=== PATIENT | female | born 1945 | race Caucasian/White ===

== ENCOUNTER → 2022-07-14 | Outpatient (CLI) | payer MEDICARE ==
[~2022-07-14] MED LIST: SODIUM CHLORIDE 0.9% 500 ML 500 ML in EMPTY BAG 1 BAG IV PRN
[2022-07-14] MEDS: MAGNESIUM SULFATE-D5W PMX 1 GM in DEXTROSE/WATER 1 100ML.BAG IVPB SCH ×3 (12:35→13:36)
[2022-07-14 12:45] VITALS: BP 128/79; PULSE 76; RESP 16; TEMP 98
== END ==
LOC: PROCWHC3 12:07
PROVIDERS: ATTEND Internal Medicine Nephrology
DX: E83.42 Hypomagnesemia (principal)
CPT/HCPCS: 96365; 96366; J3475

== ENCOUNTER → 2022-10-29 | Outpatient (CLI) | payer MEDICARE ==
--- NOTE | 2022-11-01 11:19 | CT ---
EXAMINATION TYPE: CT abdomen pelvis wo con DATE OF EXAM: 10/29/2022 COMPARISON: 05/31/2022 HISTORY: Abdomen swelling post op colon. Oral contrast only CT DLP: 253.30 mGycm Examination of the solid and hollow viscera is limited given the lack of contrast. Unenhanced CT of t he abdomen pelvis was performed. GI contrast is administered. Contrast is noted to extend to the righ t hemicolon. FINDINGS: LUNG BASES: No evidence for nodule. No evidence for infiltrate. LIVER/GB: The gallbladder is unremarkable. No space-occupying hepatic lesion. PANCREAS: No pancreatic mass identified. No inflammatory process seen. SPLEEN: No evidence for splenomegaly. No intrasplenic lesions seen. Chronic calcifications redemonstr ated. ADRENALS: No adrenal nodules identified. No evidence for thickening. KIDNEYS: Redemonstration of renal cystic lesions bilaterally. Nonobstructing renal calculi redemonstr ated. Vascular calcifications are seen. There is mild left-sided hydronephrosis noted in the interval without evidence for obstructing calculus. This is likely secondary to inflammatory change within th e left hemipelvis. BOWEL: Again noted are changes of left-sided colostomy. There is inflammatory change and wall thicken ing of the sigmoid colon. There is hypoattenuating area adjacent to the sigmoid colon which may refle ct phlegmon or developing abscess. No evidence for small bowel obstruction. Surgical drainage cathete r seen previously has been removed. No evidence for free air. No bowel obstruction seen. Lymph nodes: No evidence for adenopathy greater than 1 cm. Abdominal aorta: Atheromatous changes seen. No evidence for aneurysm. Genital organs: Uterine calcifications noted. Ovaries poorly visualized. Other: No significant abnormality. IMPRESSION: 1.Again noted are changes of left-sided colostomy. There is inflammatory change and wall thickening o f the sigmoid colon. There is hypoattenuating area adjacent to the sigmoid colon which may reflect ph legmon or developing abscess. Inflammatory changes are poorly characterized given the lack of contras t. 2. Mild interval left-sided hydronephrosis likely related to inflammatory changes seen within the lef t lower quadrant.
== END | disposition home or self-care (01) ==
LOC: RADCTMAIN 14:37
PROVIDERS: ATTEND Surgery Plastic and Reconstructive Surgery
DX: N13.30 Unspecified hydronephrosis (principal); K57.20 Diverticulitis of large intestine with perforation and abscess without bleeding; K63.89 Other specified diseases of intestine; Z93.3 Colostomy status
CPT/HCPCS: 74176

== ENCOUNTER 2022-11-19 10:50 | Inpatient (IN) | payer MEDICARE ==
--- NOTE | 2022-11-19 11:08 | ED ---
General Adult HPI - General Chief complaint: Recheck/Abnormal Lab/Rx Stated complaint: DIVERTICULITIS SENT BY [facility] Time Seen by Provider: 11/19/22 10:54 Source: patient, RN/MD (Dr. Dorado), RN notes reviewed Mode of arrival: ambulatory Limitations: no limitations - History of Present Illness Initial comments: 76-year-old female presents emergency department for diverticular abscess. Patient was sent in by Dr. Dorado after a CT scan showed diverticulitis with abscess. Patient has left sided colostomy. She denies any pain currently. She states that she has had some increased bloating which is why she underwent a computed tomography scan. She reports normal output from her colostomy. Denies fever, chills. - Related Data Home Medications Medication Instructions Recorded Confirmed Aspirin [Adult Low Dose Aspirin EC] 162 mg PO DAILY 07/14/22 11/19/22 Calcium Acetate 667 mg PO DAILY 07/14/22 11/19/22 Ergocalciferol [Vitamin D2 (1250 1,250 mcg PO Q30D 07/14/22 11/19/22 Mcg = 15623 Iu)] Magnesium Oxide [Mag-Ox] 400 mg PO DAILY 07/14/22 11/19/22 carvediloL [Coreg] 3.125 mg PO BID 07/14/22 11/19/22 allopurinoL 100 mg PO DAILY 11/19/22 11/19/22 calcitrioL [Calcitriol] 0.25 mcg PO MO 11/19/22 11/19/22 Allergies Allergy/AdvReac Type Severity Reaction Status Date / Time No Known Allergies Allergy Verified 11/19/22 15:10 Review of Systems ROS Statement: Those systems with pertinent positive or pertinent negative responses have been documented in the HPI. ROS Other: All systems not noted in ROS Statement are negative. Past Medical History Past Medical History: Hypertension History of Any Multi-Drug Resistant Organisms: None Reported Past Surgical History: Section, Orthopedic Surgery Additional Past Surgical History / Comment(s): Colostomy, Bowel resection. Past Anesthesia/Blood Transfusion Reactions: No Reported Reaction Past Psychological History: No Psychological Hx Reported Smoking Status: Current every day smoker General Exam Limitations: no limitations General appearance: alert, in no apparent distress Head exam: Present: atraumatic, normocephalic, normal inspection Eye exam: Present: normal appearance, PERRL, EOMI. Absent: scleral icterus, conjunctival injection, periorbital swelling ENT exam: Present: normal exam, mucous membranes moist Neck exam: Present: normal inspection. Absent: tenderness, meningismus, lymphadenopathy Respiratory exam: Present: normal lung sounds bilaterally. Absent: respiratory distress, wheezes, rales, rhonchi, stridor Cardiovascular Exam: Present: regular rate, normal rhythm, normal heart sounds. Absent: systolic murmur, diastolic murmur, rubs, gallop, clicks GI/Abdominal exam: Present: soft, distended, normal bowel sounds, other (colostomy present). Absent: tenderness, guarding, rebound, rigid Extremities exam: Present: normal inspection, full ROM, normal capillary refill. Absent: tenderness, pedal edema, joint swelling, calf tenderness Back exam: Present: normal inspection Neurological exam: Present: alert, oriented X3 Psychiatric exam: Present: normal affect, normal mood Skin exam: Present: warm, dry, intact, normal color. Absent: rash Course Vital Signs 11/19/22 11/19/22 11/19/22 11:02 14:51 17:59 Temperature 98.8 F 98.0 F 97.6 F Pulse Rate 72 75 73 Respiratory 18 18 16 Rate Blood Pressure 169/88 148/83 144/81 O2 Sat by Pulse 98 87 L 98 Oximetry Medical Decision Making - Medical Decision Making Was pt. sent in by a medical professional or institution ([facility]JEEV Tiwari, TELEVISION AGENT, urgent care, hospital, or [facility]...) When possible be specific @ -No Did you speak to anyone other than the patient for history (EMS, parent, family, police, friend...)? What history was obtained from this source @ -No Did you review nursing and triage notes (agree or disagree)? Why? @ -I reviewed and agree with nursing and triage notes Were old charts reviewed (outside hosp., previous admission, EMS record, old EKG, old radiological studies, urgent care reports/EKG's, [facility] records)? Report findings @ -No old charts were reviewed Differential Diagnosis (chest pain, altered mental status, abdominal pain women, abdominal pain men, vaginal bleeding, weakness, fever, dyspnea, syncope, headache, dizziness, GI bleed, back pain, seizure, CVA, palpatations, mental health, musculoskeletal)? @ -Differential Abdominal Pain Women: Appendicitis, Cholecystitis, diverticulosis, ischemic bowel, pancreatitis, hepatitis, UTI, gastroenteritis, AAA, incarcerated hernia, bowel obstruction, constipation, inflammatory bowel, hepatitis, peptic ulcer disease, splenic infarction, perforated viscus, vulvitis, ovarian torsion, PID, kidney stone, placenta abruption, this is not meant to be an all-inclusive list EKG interpreted by me (3pts min.). @ -none X-rays interpreted by me (1pt min.). @ -None done CT interpreted by me (1pt min.). @ -None done U/S interpreted by me (1pt. min.). @ -None done What testing was considered but not performed or refused? (CT, X-rays, U/S, labs)? Why? @ -None What meds were considered but not given or refused? Why? @ -None Did you discuss the management of the patient with other professionals (professionals i.e. , PA, TELEVISION AGENT, lab, RT, psych nurse, social insurance adviser, singing waiter or waitress, teacher, space operations officer, case management assistant)? Give summary @ -Management discussed with Dr. Dorado who would like inpatient admission of this patient with IV Zosyn and interventional radiology consult Was smoking cessation discussed for >3mins.? @ -No Was critical care preformed (if so, how long)? @ -No Were there social determinants of health that impacted care today? How? (Homelessness, low income, unemployed, alcoholism, drug addiction, transportation, low edu. Level, literacy, decrease access to med. care, senior care, rehab)? @ -No Was there de-escalation of care discussed even if they declined (Discuss DNR or withdrawal of care, Hospice)? DNR status @ -No What co-morbidities impacted this encounter? (DM, HTN, Smoking, COPD, CAD, Cancer, CVA, ARF, Chemo, Hep., AIDS, mental health diagnosis, sleep apnea, morbid obesity)? @ -None Was patient admitted / discharged? Hospital course, mention meds given and route, prescriptions, significant lab abnormalities, going to OR and other pertinent info. @ -Admitted. Patient sent to the emergency department by Dr. Dorado for diverticulitis with abscess. Patient states that she's noted increase in bloating recently and underwent a computed tomography scan which showed diverticulitis with abscess. She denies any specific abdominal pain. Patient has a colostomy and reports normal output. Case was discussed with Dr. Dorado who would like inpatient admission of this patient with IV Zosyn and interventional radiology consult. Case discussed with my attending, Dr. Bailon Interventional radiology reviewed the patient's imaging from 3 weeks ago, discussed with Dr. Dorado that they believe there is nothing to be drained based on that imaging. Requests repeat CT with oral and IV contrast. Undiagnosed new problem with uncertain prognosis? @ -No Drug Therapy requiring intensive monitoring for toxicity (Heparin, Nitro, Insulin, Cardizem)? @ -No Were any procedures done? @ -No Diagnosis/symptom? @ -Diverticulitis with abscess Acute, or Chronic, or Acute on Chronic? @ -Acute Uncomplicated (without systemic symptoms) or Complicated (systemic symptoms)? @ -Uncomplicated Side effects of treatment? @ -No Exacerbation, Progression, or Severe Exacerbation? @ - Poses a threat to life or bodily function? How? (Chest pain, [place], [place], pneumonia, PE, COPD, DKA, ARF, appy, cholecystitis, CVA, Diverticulitis, Homicidal, Suicidal, threat to staff... and all critical care pts) @ -diverticulitis - Lab Data Result diagrams: 11/19/22 13:36 Disposition Clinical Impression: Intra-abdominal abscess, Diverticulitis Disposition: ADMITTED IP TO THIS HOSP Condition: Stable Is patient prescribed a controlled substance at d/c from ED?: No
[2022-11-19] MEDS ORDERED: ACETAMINOPHEN TAB 325 MG TAB PO PRN (12:34)
[2022-11-19] MEDS ORDERED: MORPHINE SULFATE 4 MG/ML SYRINGE IV PRN (12:34)
[2022-11-19] MEDS ORDERED: traMADol 50 MG TAB PO PRN (12:34)
[2022-11-19] MEDS ORDERED: NALOXONE 0.4 MG/ML 1 ML VIAL IV PRN (12:34)
[2022-11-19] MEDS ORDERED: PIPERACILLIN-TAZOBACTAM 3.375 GM in SODIUM CHLORIDE 0.9% 100 ML IVPB STA (12:37)
[2022-11-19 13:50] LABS: Basophils % (A) 0 %; Eosinophils # (A) 0.1 k/uL (0-0.7); Eosinophils % (A) 1 %; HCT 32.2 % (34.0-46.0); HGB 10.8 gm/dL (11.4-16.0); Lymphocytes # (A) 0.9 k/uL (1.0-4.8); Lymphocytes % (A) 16 %; MCH 35.5 pg (25.0-35.0); MCHC 33.5 g/dL (31.0-37.0); MCV 106.1 fL (80.0-100.0); Macrocytosis Moderate; Monocytes # (A) 0.4 k/uL (0-1.0); Monocytes % (A) 8 %; Neutrophils # (A) 4.1 k/uL (1.3-7.7); Neutrophils % (A) 74 %; Platelet Count 528 k/uL (150-450); RBC 3.03 m/uL (3.80-5.40); RDW 14.3 % (11.5-15.5); WBC 5.6 k/uL (3.8-10.6)
[2022-11-19] MEDS ORDERED: IOPAMIDOL CONTRAST (ORAL USE) VIAL PO PRN (16:38)
[2022-11-19 18:46] LABS: ALT 16 U/L (4-34); AST 20 U/L (14-36); African American GFR (CKD) 81 (>60 ml/min/1.73 sqM); Albumin 2.6 g/dL (3.5-5.0); Albumin/Globulin Ratio 0.8; Alkaline Phosphatase 59 U/L (38-126); Anion Gap 16 mmol/L; Blood Urea Nitrogen 15 mg/dL (7-17); Calcium 6.9 mg/dL (8.4-10.2); Carbon Dioxide 14 mmol/L (22-30); Chloride 113 mmol/L (98-107); Globulin 3.1 g/dL; Glucose 81 mg/dL (74-99); Non-African American GFR(CKD) 70 (>60 ml/min/1.73 sqM); Sodium 143 mmol/L (137-145); Total Bilirubin 0.6 mg/dL (0.2-1.3); Total Protein 5.7 g/dL (6.3-8.2)
[2022-11-19 18:48] LABS: Potassium 3.3 mmol/L (3.5-5.1)
--- NOTE | 2022-11-19 19:42 | CT ---
EXAMINATION TYPE: CT abdomen pelvis w con CT DLP: 600.7 mGycm, Automated exposure control for dose reduction was used. DATE OF EXAM: 11/19/2022 7:08 PM COMPARISON: CT abdomen pelvis most recent from 10/29/2022. CLINICAL INDICATION:Female, 76 years old with history of abd distention, diverticulitis; abd distenti on, diverticulitis TECHNIQUE: Axial CT of the abdomen and pelvis. Sagittal and coronal reformats were created on a [employer] workstation. Contrast used:100ml mL of Isovue 300 with IV Contrast, (none if empty) Oral contrast used: with Oral Contrast (none if empty) FINDINGS: LOWER CHEST: Unremarkable ABDOMEN LIVER: Unremarkable GALLBLADDER AND BILE DUCTS: Unremarkable. PANCREAS: Unremarkable. SPLEEN: Unremarkable. ADRENAL GLANDS: Unremarkable. KIDNEYS AND URETERS: No evidence of hydronephrosis or obstructing renal calculus. The ureters are unr emarkable. Calcifications within the renal sinuses to represent vascular calcifications versus obstr ucting calculi. PELVIS BLADDER: Unremarkable REPRODUCTIVE: The left adnexa demonstrates a somewhat tubular structure which is not significantly ch anged from prior. This has thin watts and a well-demarcated fat margins. No ABDOMEN & PELVIS STOMACH AND BOWEL: Redemonstration of inflammation changes around the sigmoid colon no organizing flu id collection visualized. There is a left abdominal colostomy present. No evidence for bowel obstruct ion. PERITONEUM/RETROPERITONEUM: No evidence of pneumoperitoneum or free fluid. VASCULATURE: Moderate atherosclerotic calcifications are present throughout the abdominal aorta and i ts branches. No evidence of aortic aneurysm. Infrarenal abdominal ectasia measuring up to 2.2 cm's. MUSCULOSKELETAL: No acute osseous abnormalities, severe degeneration changes of the hips with bone-on -bone articulation on the right. LYMPH NODES: No gross evidence for lymphadenopathy. SOFT TISSUE/ABDOMINAL WALL: Unremarkable IMPRESSION: 1. No evidence for bowel obstruction. Oral contrast extends to the colon. 2. Similar exam compared to 10/29/2022. There is post surgical changes with left-sided colostomy. Infl ammation changes around the sigmoid colon remain. No organizing fluid collection definitively visuali zed. 3. Left adnexal low-density area felt to be somewhat tubular could represent the left ovary versus d ilated fallopian possibly hydrosalpinx given its thin watts.
[2022-11-19] MEDS ORDERED: POTASSIUM CHLORIDE ER 20 MEQ TAB.ER PO STA (20:23)
--- NOTE | 2022-11-19 20:45 | P.GSCN ---
History of Present Illness Consult date: 11/19/22 History of present illness: CHIEF COMPLAINT: Diverticular abscess HISTORY OF PRESENT ILLNESS: The patient is a 76 year old female with recent perforated diverticulitis and small bowel obstruction, 6 months ago. She had acute renal failure, sepsis, bowel obstruction and is status post diverting colostomy April 2022. She presents with abdominal distention and persistent thrombocytosis. She had recent CT of the abdomen and pelvis report demonstrating abnormality of abscess within the pelvis and pelvic fluid collectioin. She denies fevers and chills. She is tolerating diet. She was sent to the emergency room for intra-abdominal diverticular abscess for drainage. PAST MEDICAL HISTORY: See list and reviewed PAST SURGICAL HISTORY: See list and reviewed MEDICATIONS: See list and reviewed ALLERGIES: See list and reviewed SOCIAL HISTORY: See list and reviewed FAMILY HISTORY: See list and reviewed REVIEW OF ORGAN SYSTEMS: CONSTITUTIONAL: No fevers or chills. Has weight loss. EYES: Denies any trouble with vision. No glasses. HEENT: No difficulties with hearing. No nosebleeds. No difficulty swallowing. RESPIRATORY: Denies pneumonia. Denies any troubles with breathing or dyspnea on exertion. CARDIOVASCULAR: Denies any chest pain, palpitations, or recent heart attacks. Has hypertensive heart disease. GASTROINTESTINAL: Denies fatty food intolerance. Denies change in bowel habits and gas bloat. GENITOURINARY: Denies any blood in urine or increased urinary frequency. Past history of acute renal failure with dialysis. NEUROLOGICAL: Denies any numbness or tingling along the distal extremities. No seizure disorders or headaches. MUSCULOSKELETAL: Has back pain, stiffness or joint arthritis. Has gout. SKIN: No current skin cancer. No rash. PSYCHIATRIC: Denies current depression or suicidal thoughts. ENDOCRINE: Denies current thyroid disorders. Denies any blood sugar glucose intolerance. HEME/LYMPHATIC: Denies any lumps and bumps around the neck. No recent deep venous thrombosis. Has anemia. ALLERGY/IMMUNOLOGY: No immunoglobulin therapy. No immune deficiencies. BREAST: Denies current breast lumps, pain or nipple discharge. PHYSICAL EXAM: VITALS: Reviewed CONSTITUTIONAL: Well developed and in no acute distress. EYES: Conjuctivae without sclera icterus. Extraocular movements grossly intact. HEAD, EARS, NOSE, THROAT: Moist buccal mucosa. Head is atraumatic, normocephalic. Hears conversational speech. No nasal drainage. NECK: Supple. No JV distention. No thyroidomegaly. RESPIRATORY: Non-labored respirations and equal bilateral excursions. No gross wheezes. CARDIOVASCULAR: Palpable 2+ radial pulses. ABDOMEN: Abdominal distention. Ostomy patent and functioning. LYMPH: No neck lymphadenopathy. MUSCULOSKELETAL: No clubbing cyanosis or edema SKIN: Warm and well perfused with good skin turgor. NEUROLOGIC: Cranial nerves II through XII grossly intact. No focal or lateralizing signs. PSYCH: Appropriate affect. Alert and oriented to person, place and time. Displays appropriate insight. CLINCAL LABS: Reviewed. WBC normal. Hgb low, anemia. IMAGING: Independently reviewed. CT of the abdomen and pelvis demonstrates pelvic fluid collectomy. RADIOLOGY: Report reviewed. CT of the abdomen and pelvis with fluid collection of the pelvis of abscess. Has hydronephrosis. RECORDS: previous old records reviewed of hospitalization. ASSESSMENT: 1. Abnormal CT scan pelvis with abscess. 2. Hypertensive heart disease 3. Thrombocytosis 4. Tobacco abuse disorder. PLAN: 1. IV fluid hydration. 2. Admission for IV antibiotics. 3. Consultation to interventional radiology for pelvic abscess. ADVANCE DIRECTIVE: Thank you for this kind consultation. ADDENDUM: I personally spoke with Intervention radiology regarding above case. Per discussion, repeat CT of the abdomen and pelvis with IV and oral contrast advised. Reassessment of IR drainage pending images. Past Medical History Past Medical History: Hypertension History of Any Multi-Drug Resistant Organisms: None Reported Past Surgical History: Section, Orthopedic Surgery Additional Past Surgical History / Comment(s): Colostomy, Bowel resection. Past Anesthesia/Blood Transfusion Reactions: No Reported Reaction Past Psychological History: No Psychological Hx Reported Smoking Status: Current every day smoker Medications and Allergies Home Medications Medication Instructions Recorded Confirmed Type Aspirin [Adult Low Dose Aspirin EC] 162 mg PO DAILY 07/14/22 11/19/22 History Calcium Acetate 667 mg PO DAILY 07/14/22 11/19/22 History Ergocalciferol [Vitamin D2 (1250 1,250 mcg PO Q30D 07/14/22 11/19/22 History Mcg = 03738 Iu)] Magnesium Oxide [Mag-Ox] 400 mg PO DAILY 07/14/22 11/19/22 History carvediloL [Coreg] 3.125 mg PO BID 07/14/22 11/19/22 History allopurinoL 100 mg PO DAILY 11/19/22 11/19/22 History calcitrioL [Calcitriol] 0.25 mcg PO MO 11/19/22 11/19/22 History Allergies Allergy/AdvReac Type Severity Reaction Status Date / Time No Known Allergies Allergy Verified 11/19/22 15:10 Surgical - Exam Vital Signs Temp Pulse Resp BP Pulse Ox 98.8 F 72 18 169/88 98 11/19/22 11:02 11/19/22 11:02 11/19/22 11:02 11/19/22 11:02 11/19/22 11:02 Results - Labs 11/19/22 13:36 11/19/22 17:52 Abnormal Lab Results - Last 24 Hours (Table) 11/19/22 11/19/22 Range/Units 13:36 17:52 RBC 3.03 L (3.80-5.40) m/uL Hgb 10.8 L (11.4-16.0) gm/dL Hct 32.2 L (34.0-46.0) % MCV 106.1 H (80.0-100.0) fL MCH 35.5 H (25.0-35.0) pg Plt Count 528 H (150-450) k/uL Lymphocytes # 0.9 L (1.0-4.8) k/uL Potassium 3.3 L (3.5-5.1) mmol/L Chloride 113 H (98-107) mmol/L Carbon Dioxide 14 L (22-30) mmol/L Calcium 6.9 L (8.4-10.2) mg/dL Total Protein 5.7 L (6.3-8.2) g/dL Albumin 2.6 L (3.5-5.0) g/dL Diabetes panel 11/19/22 Range/Units 17:52 Sodium 143 (137-145) mmol/L Potassium 3.3 L (3.5-5.1) mmol/L Chloride 113 H (98-107) mmol/L Carbon Dioxide 14 L (22-30) mmol/L BUN 15 (7-17) mg/dL Creatinine 0.83 (0.52-1.04) mg/dL Glucose 81 (74-99) mg/dL Calcium 6.9 L (8.4-10.2) mg/dL AST 20 (14-36) U/L ALT 16 (4-34) U/L Alkaline Phosphatase 59 (38-126) U/L Total Protein 5.7 L (6.3-8.2) g/dL Albumin 2.6 L (3.5-5.0) g/dL Calcium panel 11/19/22 Range/Units 17:52 Calcium 6.9 L (8.4-10.2) mg/dL Albumin 2.6 L (3.5-5.0) g/dL Pituitary panel 11/19/22 Range/Units 17:52 Sodium 143 (137-145) mmol/L Potassium 3.3 L (3.5-5.1) mmol/L Chloride 113 H (98-107) mmol/L Carbon Dioxide 14 L (22-30) mmol/L BUN 15 (7-17) mg/dL Creatinine 0.83 (0.52-1.04) mg/dL Glucose 81 (74-99) mg/dL Calcium 6.9 L (8.4-10.2) mg/dL Adrenal panel 11/19/22 Range/Units 17:52 Sodium 143 (137-145) mmol/L Potassium 3.3 L (3.5-5.1) mmol/L Chloride 113 H (98-107) mmol/L Carbon Dioxide 14 L (22-30) mmol/L BUN 15 (7-17) mg/dL Creatinine 0.83 (0.52-1.04) mg/dL Glucose 81 (74-99) mg/dL Calcium 6.9 L (8.4-10.2) mg/dL Total Bilirubin 0.6 (0.2-1.3) mg/dL AST 20 (14-36) U/L ALT 16 (4-34) U/L Alkaline Phosphatase 59 (38-126) U/L Total Protein 5.7 L (6.3-8.2) g/dL Albumin 2.6 L (3.5-5.0) g/dL
[2022-11-19] MEDS: carvediloL 6.25 MG TAB PO SCH (21:40)
[2022-11-20] MEDS: ASPIRIN 81 MG PO SCH (09:54)
[2022-11-20] MEDS: MAGNESIUM OXIDE 400 MG TAB PO SCH (09:54)
[2022-11-20] MEDS: allopurinoL 100 MG TAB PO SCH (09:54)
[2022-11-20] MEDS: carvediloL 6.25 MG TAB PO SCH ×2 (09:54→18:25)
[2022-11-20] MEDS: CALCIUM ACETATE 667 MG TAB PO SCH (09:55)
--- NOTE | 2022-11-20 10:12 | P.CONS ---
History of Present Illness - History of Present Illness This is a pleasant 76 years old female with past medical history of hypertens ion. She was in this facility 05/10-05/31 for small bowel obstruction status post surgery for bowel resection and left lower quadrant colostomy. She's been having abdominal distention 2 months, she follows up with her surgeon Dr. Ludivina Newman CAT scan of the abdomen, last Tuesday she did follow up with Dr. Florence for the CAT scan and results showing an abscess so she was referred to the hospital. CAT scan of the abdomen and pelvis with contrast on 11/19: No evidence of bowel obstruction, with surgical changes, inflammatory changes around the sigmoid colon, no organizing fluid collection visualized.No evidence of hydronephrosis. Left adnexal low density area felt to be somewhat tubular could represent left ovary versus dilated fallopian possibly hydrosalpinx given his thin watts Labs reviewed, hemoglobin 10.8, potassium 3.3, creatinine 0.8. Liver enzymes are unremarkable. Review of Systems Review of systems CONSTITUTIONAL: No fever, no malaise, no fatigue. HEENT: No recent visual problems or hearing problems. Denied any sore throat. CARDIOVASCULAR: No orthopnea, PND, no palpitations, no syncope. PULMONARY: No shortness of breath, no cough, no hemoptysis. GASTROINTESTINAL: No diarrhea, no nausea, no vomiting, no abdominal pain. Normoactive bowel sounds. NEUROLOGICAL: No headaches, no weakness, no numbness. HEMATOLOGICAL: Denies any bleeding or petechiae. GENITOURINARY: Denies any burning micturition, frequency, or urgency. MUSCULOSKELETAL/RHEUMATOLOGICAL: Denies any joint pain, swelling, or any muscle pain. ENDOCRINE: Denies any polyuria or polydipsia. Past Medical History Past Medical History: Hypertension History of Any Multi-Drug Resistant Organisms: None Reported Past Surgical History: Section, Orthopedic Surgery Additional Past Surgical History / Comment(s): Colostomy, Bowel resection. Past Anesthesia/Blood Transfusion Reactions: No Reported Reaction Past Psychological History: No Psychological Hx Reported Smoking Status: Current every day smoker Medications and Allergies Home Medications Medication Instructions Recorded Confirmed Type Aspirin [Adult Low Dose Aspirin EC] 162 mg PO DAILY 07/14/22 11/19/22 History Calcium Acetate 667 mg PO DAILY 07/14/22 11/19/22 History Ergocalciferol [Vitamin D2 (1250 1,250 mcg PO Q30D 07/14/22 11/19/22 History Mcg = 45763 Iu)] Magnesium Oxide [Mag-Ox] 400 mg PO DAILY 07/14/22 11/19/22 History carvediloL [Coreg] 3.125 mg PO BID 07/14/22 11/19/22 History allopurinoL 100 mg PO DAILY 11/19/22 11/19/22 History calcitrioL [Calcitriol] 0.25 mcg PO MO 11/19/22 11/19/22 History Allergies Allergy/AdvReac Type Severity Reaction Status Date / Time No Known Allergies Allergy Verified 11/19/22 15:10 Physical Exam Vitals: Vital Signs Temp Pulse Pulse Resp BP BP Pulse Ox 11/20/22 08:00 98.7 F 67 16 125/76 94 L 11/20/22 01:40 98.8 F 83 18 142/77 97 11/19/22 20:00 18 11/19/22 19:34 97.7 F 72 18 170/97 98 11/19/22 17:59 97.6 F 73 16 144/81 98 11/19/22 14:51 98.0 F 75 18 148/83 87 L 11/19/22 11:02 98.8 F 72 18 169/88 98 Intake and Output 11/19/22 11/20/22 11/20/22 22:59 06:59 14:59 Intake Total 240 240 Balance 240 240 Intake: Oral 240 240 Other: Voiding Method Toilet # Voids 1 3 Weight 50.802 kg GENERAL: The patient is alert and oriented x3, not in any acute distress. Well developed, well nourished. HEENT: Pupils are round and equally reacting to light. EOMI. No scleral icterus. No conjunctival pallor. Normocephalic, atraumatic. No pharyngeal erythema. No thyromegaly. CARDIOVASCULAR: S1 and S2 present. No murmurs, rubs, or gallops. PULMONARY: Chest is clear to auscultation, no wheezing , no crackles. --ABDOMEN: Soft, nontender, distended, normoactive bowel sounds. No palpable organomegaly. LLQ colostomy with liquid dark brown stool, no blood MUSCULOSKELETAL: No joint swelling or deformity. EXTREMITIES: No cyanosis, clubbing, or pedal edema. NEUROLOGICAL: Gross neurological examination did not reveal any focal deficits. SKIN: No rashes. no petechiae. Results CBC & Chem 7: 11/19/22 13:36 11/19/22 17:52 Labs: Abnormal Lab Results - Last 24 Hours (Table) 11/19/22 11/19/22 Range/Units 13:36 17:52 RBC 3.03 L (3.80-5.40) m/uL Hgb 10.8 L (11.4-16.0) gm/dL Hct 32.2 L (34.0-46.0) % MCV 106.1 H (80.0-100.0) fL MCH 35.5 H (25.0-35.0) pg Plt Count 528 H (150-450) k/uL Lymphocytes # 0.9 L (1.0-4.8) k/uL Potassium 3.3 L (3.5-5.1) mmol/L Chloride 113 H (98-107) mmol/L Carbon Dioxide 14 L (22-30) mmol/L Calcium 6.9 L (8.4-10.2) mg/dL Total Protein 5.7 L (6.3-8.2) g/dL Albumin 2.6 L (3.5-5.0) g/dL Assessment and Plan Assessment: Abdominal distention, CAT scan showing some inflammatory changes around the sigmoid colon Recent history of perforated viscous status post bowel resection and left lower quadrant colostomy (last April,) Possible left ovarian cyst versus hydrosalpinx Plan: Continue monitoring now Vitas looks stable, blood pressure slightly elevated. Continue with aspirin At [facility] Monitor for GI symptoms and abdominal pain and tenderness We'll defer the management of abnormal CT and possible abscess to surgery team, IR team or the consulted for possible drainage Labs and medication were reviewed.. Continue same treatment. Continue with symptomatic treatment. Resume home medication. Monitor labs and vitals. DVT and GI prophylaxis. Further recommendations as per clinical course of the patient DVT prophylaxis: Subcutaneous heparin GI Prophylaxis: Suni Thank you for consulting us for follow-up
--- NOTE | 2022-11-20 10:53 | P.PN ---
Subjective Progress Note Date: 11/20/22 Principal diagnosis: Diverticulitis Patient did well overnight. Complaining of mild abdominal bloating. No significant pain. No nausea or vomiting. Tolerating diet. Objective - Vital Signs Vital signs: Vital Signs Temp 98.7 F 11/20/22 08:00 Pulse 67 11/20/22 08:00 Resp 16 11/20/22 08:00 BP 125/76 11/20/22 08:00 Pulse Ox 94 L 11/20/22 08:00 FiO2 Intake & Output 11/19/22 11/20/22 11/20/22 18:59 06:59 18:59 Intake Total 480 Balance 480 Weight 50.802 kg 50.802 kg Intake: Oral 480 Other: Voiding Method Toilet Toilet # Voids 3 - Exam Abdomen: Soft, mild distention, mild tympany, nontender, ostomy function - Labs CBC & Chem 7: 11/19/22 13:36 11/19/22 17:52 Labs: Abnormal Lab Results - Last 24 Hours (Table) 11/19/22 11/19/22 Range/Units 13:36 17:52 RBC 3.03 L (3.80-5.40) m/uL Hgb 10.8 L (11.4-16.0) gm/dL Hct 32.2 L (34.0-46.0) % MCV 106.1 H (80.0-100.0) fL MCH 35.5 H (25.0-35.0) pg Plt Count 528 H (150-450) k/uL Lymphocytes # 0.9 L (1.0-4.8) k/uL Potassium 3.3 L (3.5-5.1) mmol/L Chloride 113 H (98-107) mmol/L Carbon Dioxide 14 L (22-30) mmol/L Calcium 6.9 L (8.4-10.2) mg/dL Total Protein 5.7 L (6.3-8.2) g/dL Albumin 2.6 L (3.5-5.0) g/dL Assessment and Plan (1) Diverticulitis Narrative/Plan: 76 year old female with history of diverticulitis and possible recurrent diverticulitis of defunctionalized distal sigmoid colon. Plan for repeat CAT scan abdomen and pelvis with interventional radiology on Tuesday. Continue antibiotics. Continue diet. Current Visit: Yes Status: Acute Code(s): K57.92 - DVTRCLI OF INTEST, PART UNSP, W/O PERF OR ABSCESS W/O BLEED SNOMED Code(s): 808593453
[2022-11-20] MEDS: amLODIPine 2.5 MG TAB PO SCH (11:15)
[2022-11-20] MEDS: HEPARIN SODIUM,PORCINE 5,000 UNIT/ML 1 ML VIAL SQ SCH (20:48)
[2022-11-21] MEDS: HEPARIN SODIUM,PORCINE 5,000 UNIT/ML 1 ML VIAL SQ SCH ×2 (08:19→20:31)
[2022-11-21] MEDS: amLODIPine 2.5 MG TAB PO SCH (08:19)
[2022-11-21] MEDS: allopurinoL 100 MG TAB PO SCH (08:19)
[2022-11-21] MEDS: CALCIUM ACETATE 667 MG TAB PO SCH (08:19)
[2022-11-21] MEDS: carvediloL 6.25 MG TAB PO SCH ×2 (08:19→18:05)
[2022-11-21] MEDS: MAGNESIUM OXIDE 400 MG TAB PO SCH (08:20)
[2022-11-21] MEDS: ASPIRIN 81 MG PO SCH (08:20)
[2022-11-21] MEDS: FAMOTIDINE 20 MG/2 ML VIAL IV SCH (10:19)
--- NOTE | 2022-11-21 10:39 | P.PN ---
Subjective Progress Note Date: 11/21/22 Principal diagnosis: Diverticulitis Patient has no new complaints. Denies abdominal pain. She has moved her bowels. Tolerating diet. Objective - Vital Signs Vital signs: Vital Signs Temp 97.6 F 11/21/22 07:39 Pulse 66 11/21/22 07:39 Resp 16 11/21/22 07:39 BP 135/76 11/21/22 07:39 Pulse Ox 93 L 11/21/22 07:39 FiO2 Intake & Output 11/20/22 11/21/22 11/21/22 18:59 06:59 18:59 Intake Total 425 Balance 425 Intake: Oral 425 Other: Voiding Method Toilet Toilet # Voids 2 2 - Exam Abdomen: Soft, mild distention, mild tympany, nontender, ostomy function - Labs CBC & Chem 7: 11/19/22 13:36 11/19/22 17:52 Assessment and Plan (1) Diverticulitis Narrative/Plan: Patient doing well today. Continue antibiotics. Await interventional radiology about tomorrow. Current Visit: Yes Status: Acute Code(s): K57.92 - DVTRCLI OF INTEST, PART UNSP, W/O PERF OR ABSCESS W/O BLEED SNOMED Code(s): 609975025
--- NOTE | 2022-11-21 14:19 | P.PN ---
Subjective This is a pleasant 76 years old female with past medical history of hypertension. She was in this facility 05/10-05/31 for small bowel obstruction sta tus post surgery for bowel resection and left lower quadrant colostomy. She's been having abdominal distention 2 months, she follows up with her surgeon Dr. Ludivina Newman CAT scan of the abdomen, last Tuesday she did follow up with Dr. Florence for the CAT scan and results showing an abscess so she was referred to the hospital. CAT scan of the abdomen and pelvis with contrast on 11/19: No evidence of bowel obstruction, with surgical changes, inflammatory changes around the sigmoid colon, no organizing fluid collection visualized.No evidence of hydronephrosis. Left adnexal low density area felt to be somewhat tubular could represent left ovary versus dilated fallopian possibly hydrosalpinx given his thin watts Labs reviewed, hemoglobin 10.8, potassium 3.3, creatinine 0.8. Liver enzymes are unremarkable. 11/21/2022 patient is with no chest pain no abdominal pain no nausea vomiting no diarrhea. No other new complaints. No fever, hemodynamically stable. Continue with antiacids Continue monitoring while off antibiotics Objective - Vital Signs Vital signs: Vital Signs Temp 97.6 F 11/21/22 07:39 Pulse 66 11/21/22 07:39 Resp 16 11/21/22 07:39 BP 135/76 11/21/22 07:39 Pulse Ox 93 L 11/21/22 07:39 FiO2 Intake & Output 11/20/22 11/21/22 11/21/22 18:59 06:59 18:59 Intake Total 425 Balance 425 Intake: Oral 425 Other: Voiding Method Toilet Toilet # Voids 2 2 - Exam GENERAL: The patient is alert and oriented x3, not in any acute distress. Well developed, well nourished. HEENT: Pupils are round and equally reacting to light. EOMI. No scleral icterus. No conjunctival pallor. Normocephalic, atraumatic. No pharyngeal erythema. No thyromegaly. CARDIOVASCULAR: S1 and S2 present. No murmurs, rubs, or gallops. PULMONARY: Chest is clear to auscultation, no wheezing , no crackles. ABDOMEN: Soft, nontender, nondistended, normoactive bowel sounds. No palpable organomegaly. MUSCULOSKELETAL: No joint swelling or deformity. EXTREMITIES: No cyanosis, clubbing, or pedal edema. NEUROLOGICAL: Gross neurological examination did not reveal any focal deficits. SKIN: No rashes. no petechiae. - Labs CBC & Chem 7: 11/19/22 13:36 11/19/22 17:52 Assessment and Plan Assessment: Abdominal distention, CAT scan showing some inflammatory changes around the sigmoid colon Recent history of perforated viscous status post bowel resection and left lower quadrant colostomy (last April,) Possible left ovarian cyst versus hydrosalpinx Plan: Continue monitoring now Vitas looks stable, blood pressure slightly elevated. Continue with aspirin Continue with Norvasc Monitor for GI symptoms and abdominal pain and tenderness We'll defer the management of abnormal CT and possible abscess to surgery team, IR team or the consulted for possible drainage. Also we'll defer the management of antibiotic to surgery primary team Labs and medication were reviewed.. Continue same treatment. Continue with symptomatic treatment. Resume home medication. Monitor labs and vitals. DVT and GI prophylaxis. Further recommendations as per clinical course of the patient DVT prophylaxis: Subcutaneous heparin GI Prophylaxis: Suni Thank you for consulting us for follow-up
[2022-11-21] MEDS ORDERED: Potassium Replacement Protocol 1 EACH MISC MISCELLANE PRN (15:39)
[2022-11-22] MEDS: ASPIRIN 81 MG PO SCH (08:51)
[2022-11-22] MEDS: CALCIUM ACETATE 667 MG TAB PO SCH (08:51)
[2022-11-22] MEDS: MAGNESIUM OXIDE 400 MG TAB PO SCH (08:51)
[2022-11-22] MEDS: carvediloL 6.25 MG TAB PO SCH (08:51)
[2022-11-22] MEDS: FAMOTIDINE 20 MG/2 ML VIAL IV SCH (08:51)
[2022-11-22] MEDS: allopurinoL 100 MG TAB PO SCH (08:51)
[2022-11-22] MEDS: amLODIPine 2.5 MG TAB PO SCH (08:54)
[2022-11-22] MEDS: HEPARIN SODIUM,PORCINE 5,000 UNIT/ML 1 ML VIAL SQ SCH (08:54)
[2022-11-22 11:03] LABS: HCT 26.1 % (37.2-46.3); HGB 8.4 d/dL (12.0-15.0); MCHC 32.2 d/dL (32.0-37.0); MCV 108.8 FL (80.0-97.0); Mean Platelet Volume 9.1 FL (9.5-12.2); NRBC Per 100 WBC 0 X 10*3/uL (0.00-0.01); Platelet Count 598 X 10*3/uL (140-440); RDW 14.4 % (11.5-14.5); WBC 5.23 X 10*3/uL (4.50-10.00)
[2022-11-22 11:13] LABS: BUN/Creat Ratio 12.75 Ratio (12.00-20.00); Blood Urea Nitrogen 15.3 mg/dL (9.0-27.0); Calcium 8.5 mg/dL (8.7-10.3); Carbon Dioxide 18.7 mmol/L (21.6-31.8); Chloride 109 mmol/L (96-109); Glucose 94 mg/dL (70-110); Potassium 4.6 mmol/L (3.5-5.5); Sodium 137 mmol/L (135-145)
[2022-11-22 11:44] LABS: Basophils # (A) 0.02 X 10*3/uL (0.00-0.10); Basophils % (A) 0.4 %; Eosinophils # (A) 0.22 X 10*3/uL (0.04-0.35); Eosinophils % (A) 4.2 %; Lymphocytes # (A) 0.76 X 10*3/uL (0.90-5.00); Lymphocytes % (A) 14.5 %; Macrocytosis (M) 2+; Monocytes # (A) 0.37 X 10*3/uL (0.20-1.00); Monocytes % (A) 7.1 %; Neutrophils # (A) 3.83 X 10*3/uL (1.80-7.70); Neutrophils % (A) 73.2 %
[2022-11-22] MEDS ORDERED: PIPERACILLIN-TAZOBACTAM 3.375 GM in SODIUM CHLORIDE 0.9% 100 ML IVPB SCH (12:00)
--- NOTE | 2022-11-22 12:22 | P.CON ---
Consult Note - . Consult date: 11/22/22 Assessment/Plan:: CT report states no definite fluid collection. there is no safe access for percutaneous drainage.
[2022-11-22 12:39] VITALS: BP 148/75; PULSE 63; RESP 16; TEMP 98.3
--- NOTE | 2022-11-22 13:28 | P.PN ---
Subjective Progress Note Date: 11/22/22 This is a pleasant 76 years old female with past medical history of hypertension. She was in this facility 05/10-05/31 for small bowel obstruction status post surgery for bowel resection and left lower quadrant colostomy. She's been having abdominal distention 2 months, she follows up with her surgeon Dr. Ludivina Newman CAT scan of the abdomen, last Tuesday she did follow up with Dr. Florence for the CAT scan and results showing an abscess so she was referred to the hospital. CAT scan of the abdomen and pelvis with contrast on 11/19: No evidence of bowel obstruction, with surgical changes, inflammatory changes around the sigmoid colon, no organizing fluid collection visualized.No evidence of hydronephrosis. Left adnexal low density area felt to be somewhat tubular could represent left ovary versus dilated fallopian possibly hydrosalpinx given his thin watts Labs reviewed, hemoglobin 10.8, potassium 3.3, creatinine 0.8. Liver enzymes are unremarkable. 11/21/2022 patient is with no chest pain no abdominal pain no nausea vomiting no diarrhea. No other new complaints. No fever, hemodynamically stable. Continue with antiacids Continue monitoring while off antibiotics 11/22. Patient seen and examined. Denies abdominal pain. Denies any nausea or vomiting REVIEW OF SYSTEMS: CONSTITUTIONAL: No fever, no malaise,. CARDIOVASCULAR: No chest pain, no palpitations, no syncope. PULMONARY: No shortness of breath, no cough, GASTROINTESTINAL: No diarrhea, no nausea, no vomiting, no abdominal pain. NEUROLOGICAL: No headaches, no weakness, PHYSICAL EXAMINATION: GENERAL: The patient is alert and oriented x3, not in any acute distress. Well developed, well nourished. HEENT: Pupils are round and equally reacting to light. EOMI. No scleral icterus. No conjunctival pallor. Normocephalic, atraumatic. No pharyngeal erythema. No thyromegaly. CARDIOVASCULAR: S1 and S2 present. No murmurs, rubs, or gallops. PULMONARY: Chest is clear to auscultation, no wheezing or crackles. ABDOMEN: Soft, nontender, nondistended, normoactive bowel sounds. No palpable organomegaly. Ostomy seen MUSCULOSKELETAL: No joint swelling or deformity. EXTREMITIES: No cyanosis, clubbing, or pedal edema. NEUROLOGICAL: Gross neurological examination did not reveal any focal deficits. SKIN: No rashes. Assessment and plan Abdominal distention, CAT scan showing some inflammatory changes around the sigmoid colon Recent history of perforated viscous status post bowel resection and left lower quadrant colostomy (last April,) Possible left ovarian cyst versus hydrosalpinx Monitor vital signs Monitor CBC Monitor CMP Continue IV fluids Continue pain management IR consulted for possible drainage, they evaluated the imaging, don't think that is enough fluid to have it drained Antibiotics per ID. Gen. surgery following Labs and medication were reviewed.. Continue same treatment. Continue with symptomatic treatment. Resume home medication. Monitor labs and vitals. DVT and GI prophylaxis. Further recommendations as per clinical course of the patient Dictation was produced using [employer] dictation software. please excuse any g rammatical, word or spelling errors. Objective - Vital Signs Vital signs: Vital Signs Temp 98.6 F 11/22/22 07:27 Pulse 61 11/22/22 07:27 Resp 18 11/22/22 07:27 BP 142/90 11/22/22 07:27 Pulse Ox 98 11/22/22 07:27 FiO2 Intake & Output 11/21/22 11/22/22 11/22/22 18:59 06:59 18:59 Intake Total 620 Balance 620 Intake: Oral 620 Other: Voiding Method Toilet Toilet # Voids 2 3 - Labs CBC & Chem 7: 11/22/22 06:39 11/22/22 06:39 Labs: Microbiology - Last 24 Hours (Table) 11/19/22 13:45 Blood Culture Gram Stain - Preliminary Blood 11/19/22 13:30 Blood Culture - Preliminary Blood
--- NOTE | 2022-11-22 14:48 | P.DS ---
Providers Date of admission: 11/19/22 11:11 Expected date of discharge: 11/22/22 Attending physician: Sara Dorado Consults: 11/19/22 20:21 Consult Physician Routine Consulting Provider: Toyin Cobos Consult Reason/Comments: Medical management Do you want consulting provider notified?: Yes 11/22/22 09:12 Consult Physician Routine Consulting Provider: Willy Rogers Consult Reason/Comments: Antibiotic management, pelvic abscess Do you want consulting provider notified?: Yes Primary care physician: [facility] Course: Discharge diagnosis 1. Abnormal CT scan pelvis with abscess. 2. Hypertensive heart disease 3. Thrombocytosis 4. Tobacco abuse disorder. Hospital course he patient is a 76 year old female with recent perforated diverticulitis and sm all bowel obstruction, 6 months ago. She had acute renal failure, sepsis, bowel obstruction and is status post diverting colostomy April 2022. She presents with abdominal distention and persistent thrombocytosis. She had recent CT of the abdomen and pelvis report demonstrating abnormality of abscess within the pelvis and pelvic fluid collection outpatient. Repeat C CT during this admission shows no evidence of organizing fluid couldn't collection. There is inflammation changes around the sigmoid colon. Patient denies any abdominal pain. Her ostomy is functioning. She denies any nausea or vomiting. Tolerating regular diet. Patient seen by IR service with no drainable fluid collection. Awaiting infectious disease recommendations regarding discharge antibiotics. She's afebrile. She is up and ambulating. Tolerating diet. Patient is stable for discharge once cleared by infectious disease service. Physician Cushion Installer note has been reviewed by physician. Signing provider agrees with the documented findings, assessment, and plan of care. Patient Condition at Discharge: Stable Plan - Discharge Summary Discharge Rx Participant: No New Discharge Prescriptions: Continue Magnesium Oxide [Mag-Ox] 400 mg PO DAILY Aspirin [Adult Low Dose Aspirin EC] 162 mg PO DAILY Ergocalciferol [Vitamin D2 (1250 Mcg = 78397 Iu)] 1,250 mcg PO Q30D Calcium Acetate 667 mg PO DAILY carvediloL [Coreg] 3.125 mg PO BID allopurinoL 100 mg PO DAILY calcitrioL [Calcitriol] 0.25 mcg PO MO Discharge Medication List Aspirin [Adult Low Dose Aspirin EC] 162 mg PO DAILY 07/14/22 [History] Calcium Acetate 667 mg PO DAILY 07/14/22 [History] Ergocalciferol [Vitamin D2 (1250 Mcg = 97875 Iu)] 1,250 mcg PO Q30D 07/14/22 [History] Magnesium Oxide [Mag-Ox] 400 mg PO DAILY 07/14/22 [History] carvediloL [Coreg] 3.125 mg PO BID 07/14/22 [History] allopurinoL 100 mg PO DAILY 11/19/22 [History] calcitrioL [Calcitriol] 0.25 mcg PO MO 11/19/22 [History] Follow up Appointment(s)/Referral(s): Sara Dorado MD [STAFF PHYSICIAN] - 11/23/22 Mario Levine DO [Primary Care Provider] - 1-2 days Activity/Diet/Wound Care/Special Instructions: Discharge when cleared by infectious disease and antibiotics per ID service Discharge Disposition: HOME SELF-CARE
[2022-11-26] MEDS ORDERED: ERGOCALCIFEROL 1,250 MCG (50,000 IU) CAPSULE PO SCH (09:00)
== END 2022-11-22 17:08 | disposition home or self-care (01) | DRG 392 ==
LOC: EC 10:50 → 5NMEDONC 11:11
PROVIDERS: ADMIT Surgery Plastic and Reconstructive Surgery; ATTEND Surgery Plastic and Reconstructive Surgery
DX: K57.20 Diverticulitis of large intestine with perforation and abscess without bleeding (principal); I11.9 Hypertensive heart disease without heart failure; F17.200 Nicotine dependence, unspecified, uncomplicated; D75.839 Thrombocytosis, unspecified; N83.202 Unspecified ovarian cyst, left side; N70.11 Chronic salpingitis; Z28.310 Unvaccinated for COVID-19; Z93.3 Colostomy status; Z90.49 Acquired absence of other specified parts of digestive tract; Z79.899 Other long term (current) drug therapy; Z79.82 Long term (current) use of aspirin
CPT/HCPCS: 36415; 74177; 80048; 80053; 83605; 83735; 85025; 87040; 96365; 96366; 99285